=== PATIENT | female | born 1995 | race Caucasian/White ===

== ENCOUNTER 2020-10-26 02:05 | Inpatient (IN) | payer OTHER ==
[2020-10-26] VITALS (54 sets, daily range): BP systolic 94–136; BP diastolic 5–86; PULSE 16–120; TEMP 97–98.8
[~2020-10-26] VITALS: Ht 177.8 cm; Wt 81.8 kg
--- NOTE | 2020-10-26 02:25 | NUR ---
G1L0. 38.5. Ambulatory to LDR 4 with spouse. Clean gown on. EFM and TOCO explained and applied. Pt states she was at work tonight and thought her water broke around 2099 but there was not a large gush of fluid. Pt has had trickling fluid since then. States fluid is clear. Denies contractions. Reports good movement. 0234: SVE /-3. Bloody show noted with exam. Plan of care explained to pt and spouse. Questions answered. 0240: called and updated on his patient. See physican notification. Pt updated on plan of care and orders. Pt wanting to walk around and start pitocin at 0400. 0250: IV started and labs obtained via IV site. LR bolus infusing without difficulties.
[2020-10-26] MEDS ORDERED: PRENATAL MVI (02:37)
[2020-10-26] MEDS ORDERED: DURLAZA162.5 MG PO (02:38)
[2020-10-26] MEDS ORDERED: NATURAL IRON65 MG (02:39)
[2020-10-26 03:10] LABS: BASO % 0.3 % (0.0-2.0); EOS # 0.1 (0.0-0.7); EOS % 0.6 % (0-4.0); GRAN # 10.1 (1.4-6.5); GRAN % 77.8 % (42.2-75.2); HEMOGLOBIN 12.1 g/dl (12.5-16.0); LYMPH # 1.7 (1.2-3.4); MEAN CELL VOLUME 99 fl (80.0-100.0); MEAN CORPUSCULAR HEMOGLOBIN 33 pg (27.0-31.0); MEAN CORPUSCULAR HGB CONC 34 g/dl (33.0-37.0); MEAN PLATELET VOLUME 9.8 fl (7.4-10.4); MONO # 0.9 (0.1-0.6); MONO % 6.8 % (1.7-9.3); PLATELET COUNT 202 K/mm3 (130-400); RED BLOOD COUNT 3.62 M/mm3 (4.10-5.30); REDCELL DISTRIBUTION WIDTH-CV 13.2 % (11.5-14.5)
[2020-10-26 03:12] LABS: HEMATOCRIT 35.9 % (37.0-47.0)
--- NOTE | 2020-10-26 04:15 | NUR ---
FHR strip reactive. Pitocin explained and started at 2mus/hr per protocol.
--- NOTE | 2020-10-26 05:12 | NUR ---
[id number]: DIFFICULTY TRACING CONTRACTIONS DUE TO MATERNALS POSITION OF LEFT LATERAL. TOCO ADJUSTED
--- NOTE | 2020-10-26 06:25 | NUR ---
0625-Assumed care of patient. Up to bathroom. Returns to bedside on BB. Pitocin infusing per order at 12mu/min. Patient Comfortable with mild contraction cramping. FHR category I on EFM. Spouse at bedside. Updated on plan of care.
--- NOTE | 2020-10-26 08:30 | NUR ---
0830-Dr. Gonzalez to patients bedside. Revies strip and labor with patient. SVE by /. AROM of forebag, clear fluid. Bethany care assisted. Patient remains in bed, WL. 0948-Patient up to bedside rocking chair.
--- NOTE | 2020-10-26 10:30 | NUR ---
1030-Patient up to bathroom. Requests epidural. JENNIFER Mason notified of request. IVF bolus. Patient requests SVE. Dr. Gonzalez on unit. Requested SVE by . 1040-Patient sitting up on bedside for epidural placement. 1047-Test dose adminsitered by JENNIFER Mason. Patient tolerates procedure well. VSS, see anesthesia flow record. Repositioned WL with PB.
--- NOTE | 2020-10-26 11:45 | NUR ---
1145-Olivo to DD, clear yellow urine return. SVE 5/100/-2. Repostioned patient RL with PB and decreased pitocin to 14mu/min due to contractions tracing every 1 min.
--- NOTE | 2020-10-26 12:05 | NUR ---
Dr. Gonzalez on unit. Updated on SVE at 1145 5/100/-2 and pitocin decreased due to contractions every 1 min. No new orders. Reviewed FHR tania at desk.
--- NOTE | 2020-10-26 14:08 | NUR ---
1408-Patient Complete, Dr. Gonzalez notified. Set patient up for pushing. 1414-Patient begins pushing with contractions. Moves vertex well. Difficulty tracing contractions via toco. Patient able to feel pressure and push when ready. 1430-Dr. Gonzalez notified patient is moving vertex well and we are ready for him to come to unit. 1440-Dr. Gonzalez on unit. Patient begins pushing with MD at bedside with contractions. 1446-Spontaneous delivery of head assisted by MD. Patient continues to push and body delivers with hand up near chin. Viable male to mothers abdomen by MD. 2 Vessel cord clamped x2 by and cut by FOB. Care of assumed by MARIBELL Vázquez Apgars 8/9/9. 1650-Spontaneous dellivery of intact placenta by MD. EBL 200ml.Fundal massage firm. Lochia WNL. Pitocin bolus per MD orders and protocol. Second degre perineal laceration and right labial laceration repaired by MD. Bethany care provided. Updated on plan of care and safety.
--- NOTE | 2020-10-26 16:10 | NUR ---
1610-Patient up to bathroom easily walks with steady gait with standby assist. Becomes dizzy on toilet. Unable to void. Verbalizes begining to feel unsteady. Amonia salt obtained, patient becomes unalbe to hold up head but moans to name and withing 15 seconds opens eyes while RN waves amonia salts to nose. Patient assisted to wheelchair and to bed with two assist. Patient A&O x4, VSS. Remains in bed with spouse at bedside holding infant. Updated on safety and plan of care.
--- NOTE | 2020-10-26 18:00 | NUR ---
1800-Patient to Room 218 via wheelchair. Easily transfers self to bathroom and voids 600ml clear yellow urine. Ambulates to bed with steady gait. Updated on plan of care and oriented to room.
[2020-10-27 02:45] VITALS: BP 113/67; PULSE 75; TEMP 97.4
[2020-10-27 08:02] VITALS: BP 115/78; PULSE 88; TEMP 98.2
--- NOTE | 2020-10-27 08:12 | NUR ---
Patient refuses COVID19 test.
[2020-10-27] MEDS ORDERED: IBU600 MG PO (08:44)
[2020-10-27 11:06] VITALS: BP 105/62; PULSE 85; TEMP 97.8
[2020-10-27 16:15] VITALS: BP 111/71; PULSE 76; TEMP 98.2
== END 2020-10-27 16:30 | disposition home or self-care (01) | DRG 807 ==
LOC: LDRO 02:05 → OB 02:45 → LDR 02:45 → OB 18:00
PROVIDERS: ADMIT Obstetrics & Gynecology
PROC: 10E0XZZ Delivery of Products of Conception, External Approach (ICD-10-PCS; principal; 2020-10-26)
PROC: 0KQM0ZZ Repair Perineum Muscle, Open Approach (ICD-10-PCS; 2020-10-26)
PROC: 0UQMXZZ Repair Vulva, External Approach (ICD-10-PCS; 2020-10-26)
DX: O99.02 Anemia complicating childbirth (principal); Z37.0 Single live birth; D64.9 Anemia, unspecified; O69.89X0 Labor and delivery complicated by other cord complications, not applicable or unspecified; O70.1 Second degree perineal laceration during delivery; Z3A.38 38 weeks gestation of pregnancy
CPT/HCPCS: J2590; J7120